=== PATIENT | female | born 1940 | race Caucasian/White ===

== ENCOUNTER 2024-05-15 15:03 | Inpatient (IN) | payer MEDICARE ==
[~2024-05-15] VITALS: Ht 162.6 cm; Wt 72.6 kg
[2024-05-15 19:30] VITALS: BP 138/72; TEMP 98.2; O2SAT 97
[2024-05-15] MEDS ORDERED: MAGNESIUM HYDROXIDE 30 ML UDC PO PRN (20:00)
[2024-05-15] MEDS ORDERED: MAG HYDROX/AL HYDROX/SIMETH 30 ML UDC PO PRN (20:00)
[2024-05-15] MEDS: BLOOD SUGAR DIAGNOSTIC 1 EACH STRIP IN ONE (20:25)
[2024-05-15] MEDS ORDERED: LEVO500T90 PO (20:41)
[2024-05-15] MEDS ORDERED: ALPR1TAB2 PO (20:41)
[2024-05-15] MEDS ORDERED: ESTRADIOL (20:41)
[2024-05-15 21:42] VITALS: BP 138/72; TEMP 98.2; O2SAT 97
[2024-05-16 02:37] LABS: APPEARANCE,URINE CLOUDY (CLEAR); BILIRUBIN,URINE NEGATIVE (NEGATIVE); BLOOD, URINE TRACE-INTA Ery/uL (NEGATIVE); COLOR,URINE YELLOW (YELLOW); KETONES,URINE NEGATIVE (NEGATIVE); LEUKOCYTE ESTERASE ,URINE 2+ (NEGATIVE); NITRITE, URINE POSITIVE (NEGATIVE); PROTEIN,URINE NEGATIVE (NEGATIVE); UGLUCOSE NEGATIVE (NEGATIVE); UROBILINOGEN,URINE 0.2 EU/dL (0.2)
[2024-05-16 02:45] LABS: ADD URINE CULTURE YES; BACTERIA,URINE Moderate /HPF (None Seen); RBC,URINE 0-2 /HPF (0-2); SQUAMOUS EPITHELIAL CELL,UR Rare /HPF (None Seen)
[2024-05-16 07:08] LABS: ALANINE AMINOTRANSFERASE 15 U/L (12-78); ALKALINE PHOSPHATASE 102 U/L (46-116); ASPARTATE AMINOTRANSFERASE 15 U/L (15-37); BILIRUBIN,TOTAL 0.5 mg/dL (0.2-1.0); CALCIUM, SERUM 8.2 mg/dL (8.5-10.1); CARBON DIOXIDE 28 mmol/L (21-32); CHLORIDE 109 mmol/L (98-107); CREATININE 0.7 mg/dL (0.6-1.3); GLUCOSE 98 mg/dL (74-106); POTASSIUM 4.2 mmol/L (3.5-5.1); SODIUM SERUM 144 mmol/L (136-145); TOTAL PROTEIN, SERUM 6.7 g/dL (6.4-8.2); UREA NITROGEN, BLOOD 15 mg/dL (7-18)
[2024-05-16 07:09] LABS: CHOLESTEROL 175 mg/dL (<200); HDL CHOLESTEROL 72 mg/dL (40-60); LDL 83 mg/dL (0-99); TRIGLYCERIDES 65 mg/dL (30-150)
[2024-05-16 08:00] VITALS: BP 159/64; TEMP 97.8; O2SAT 98
[2024-05-16] MEDS: LORAZEPAM 0.5 MG TABLET PO PRN (09:55)
[2024-05-16] MEDS: DIVALPROEX SODIUM 125 MG CAP.SPRINK PO SCH (12:26)
[2024-05-16] MEDS: OLANZAPINE 10 MG VIAL IM STA (15:45)
[2024-05-16 16:00] VITALS: BP 114/96; TEMP 97.8; O2SAT 96
[2024-05-16] MEDS: ACETAMINOPHEN 325 MG TABLET PO PRN (16:37)
[2024-05-16 20:41] VITALS: BP 137/98; TEMP 97.9; O2SAT 97
[2024-05-16] MEDS: TEMAZEPAM 7.5 MG CAPSULE PO PRN (21:13)
[2024-05-17 08:00] VITALS: BP 160/71; TEMP 98.7; O2SAT 97
[2024-05-17] MEDS: LORAZEPAM 0.5 MG TABLET PO ONE (10:51)
[2024-05-17] MEDS: DIVALPROEX SODIUM 125 MG CAP.SPRINK PO SCH (13:02)
[2024-05-17 16:00] VITALS: BP 142/73; TEMP 98.6; O2SAT 100
[2024-05-17 16:52] LABS: THYROID STIMULATING HORMONE 1.59 uIU/mL (0.358-3.74)
[2024-05-17 20:00] VITALS: BP 117/53; TEMP 98.1; O2SAT 96
[2024-05-17] MEDS: OLANZAPINE 2.5 MG TABLET PO SCH (21:26)
[2024-05-18 08:00] VITALS: BP 153/80; TEMP 97.6; O2SAT 96
[2024-05-18 08:08] LABS: FOLIC ACID 10.3 ng/mL (>3.0)
[2024-05-18] MEDS: CYANOCOBALAMIN 500 MCG TABLET PO SCH (09:40)
[2024-05-18 16:00] VITALS: BP 127/67; TEMP 97.9; O2SAT 96
[2024-05-18 20:00] VITALS: BP 132/64; TEMP 98.1; O2SAT 98
[2024-05-19 09:04] VITALS: BP 113/68; TEMP 97.9; O2SAT 95
[2024-05-19 16:07] VITALS: BP 170/76; TEMP 97.6; O2SAT 98
[2024-05-19 20:00] VITALS: BP 145/69; TEMP 98.2; O2SAT 98
[2024-05-19] MEDS: NITROFURANTOIN/MONOHYDRATE MACROCRYSTALS 100 MG CAPSULE PO SCH (23:03)
[2024-05-20 08:00] VITALS: BP 139/67; TEMP 97.6; O2SAT 98
[2024-05-20 16:00] VITALS: BP 118/62; TEMP 98; O2SAT 98
[2024-05-20 20:36] VITALS: BP 143/71; TEMP 98.2; O2SAT 97
[2024-05-21 16:30] VITALS: BP 117/51; TEMP 98.1; O2SAT 96
[2024-05-21 21:11] VITALS: BP 157/85; TEMP 98.1; O2SAT 99
[2024-05-22 08:00] VITALS: BP 155/66; TEMP 97.9; O2SAT 99
[2024-05-22] MEDS: OLANZAPINE 2.5 MG TABLET PO PRN (08:03)
[2024-05-22 16:00] VITALS: BP 127/63; TEMP 97.7; O2SAT 98
[2024-05-22 20:37] VITALS: BP 156/62; TEMP 97.7; O2SAT 99
[2024-05-23 07:30] LABS: BASOPHILS % (AUTO) 0.5 % (0.0-2.0); EOSINOPHILS # (AUTO) 0.2 K/uL (0.0-0.7); EOSINOPHILS % (AUTO) 3.4 % (0.0-6.0); HEMATOCRIT 34 % (33-45); HEMOGLOBIN 11.2 g/dL (11.5-14.8); LYMPHOCYTES # (AUTO) 1.1 K/uL (0.8-4.8); LYMPHOCYTES % (AUTO) 18.8 % (20.0-44.0); MEAN CORPUSCULAR HEMOGLOBIN 33 PG (26.0-33.0); MEAN CORPUSCULAR HGB CONC 33 g/dl (31.0-36.0); MEAN CORPUSCULAR VOLUME 100 fL (82-100); MONOCYTES # (AUTO) 0.6 K/uL (0.1-1.30); MONOCYTES % (AUTO) 10.9 % (2.0-12.0); NEUTROPHILS # (AUTO) 3.9 K/uL (1.8-8.9); NEUTROPHILS % (AUTO) 66.4 % (43.0-81.0); PLATELET COUNT (AUTO) 189 K/uL (150-450); RED BLOOD CELL COUNT(AUTO) 3.38 MIL/uL (4.0-5.2); RED CELL DISTRIBUTION WIDTH 13.8 % (11.5-15.0); WHITE BLOOD COUNT (AUTO) 5.8 K/uL (4.3-11.0)
[2024-05-23 07:48] LABS: ALANINE AMINOTRANSFERASE 16 U/L (12-78); ALBUMIN 2.6 g/dL (3.4-5.0); ALKALINE PHOSPHATASE 82 U/L (46-116); ASPARTATE AMINOTRANSFERASE 12 U/L (15-37); BILIRUBIN,TOTAL 0.4 mg/dL (0.2-1.0); CALCIUM, SERUM 8.1 mg/dL (8.5-10.1); CARBON DIOXIDE 28 mmol/L (21-32); CHLORIDE 109 mmol/L (98-107); CREATININE 0.6 mg/dL (0.6-1.3); GLUCOSE 85 mg/dL (74-106); SODIUM SERUM 144 mmol/L (136-145); TOTAL PROTEIN, SERUM 5.9 g/dL (6.4-8.2); UREA NITROGEN, BLOOD 21 mg/dL (7-18)
[2024-05-23 08:00] VITALS: BP 159/80; TEMP 97.9; O2SAT 99
[2024-05-23 08:34] LABS: VALPROIC ACID 61 ug/mL (50-100)
[2024-05-23 16:00] VITALS: BP 140/73; TEMP 98.1; O2SAT 99
[2024-05-23 20:31] VITALS: BP 143/77; TEMP 98.4; O2SAT 98
[2024-05-24 08:00] VITALS: BP 152/81; TEMP 98.1; O2SAT 97
[2024-05-24] MEDS ORDERED: Z GUARD REMEDY 4 OZ OINT TP PRN (08:00)
[2024-05-24] MEDS: Z GUARD REMEDY 4 OZ OINT TP SCH (09:02)
[2024-05-24] MEDS: CLOTRIMAZOLE 1% 15 GM TUBE TP SCH (09:02)
[2024-05-24 16:00] VITALS: BP 122/61; TEMP 97.7; O2SAT 98
[2024-05-24 20:00] VITALS: BP 136/67; TEMP 97.9; O2SAT 97
[2024-05-25 08:00] VITALS: BP 129/60; TEMP 97.5; O2SAT 98
[2024-05-25 12:36] LABS: CALCIUM, SERUM 8.5 mg/dL (8.5-10.1); CARBON DIOXIDE 25 mmol/L (21-32); CHLORIDE 105 mmol/L (98-107); CREATININE 0.6 mg/dL (0.6-1.3); GLUCOSE 89 mg/dL (74-106); POTASSIUM 4.1 mmol/L (3.5-5.1); SODIUM SERUM 141 mmol/L (136-145); UREA NITROGEN, BLOOD 25 mg/dL (7-18)
[2024-05-25 13:12] LABS: BASOPHILS % (AUTO) 0.3 % (0.0-2.0); EOSINOPHILS # (AUTO) 0.2 K/uL (0.0-0.7); EOSINOPHILS % (AUTO) 2.4 % (0.0-6.0); HEMATOCRIT 36 % (33-45); HEMOGLOBIN 12.1 g/dL (11.5-14.8); LYMPHOCYTES # (AUTO) 1.1 K/uL (0.8-4.8); LYMPHOCYTES % (AUTO) 12.8 % (20.0-44.0); MEAN CORPUSCULAR HEMOGLOBIN 33 PG (26.0-33.0); MEAN CORPUSCULAR HGB CONC 34 g/dl (31.0-36.0); MEAN CORPUSCULAR VOLUME 99 fL (82-100); MONOCYTES # (AUTO) 0.7 K/uL (0.1-1.30); MONOCYTES % (AUTO) 8.7 % (2.0-12.0); NEUTROPHILS # (AUTO) 6.4 K/uL (1.8-8.9); NEUTROPHILS % (AUTO) 75.8 % (43.0-81.0); PLATELET COUNT (AUTO) 196 K/uL (150-450); RED BLOOD CELL COUNT(AUTO) 3.62 MIL/uL (4.0-5.2); RED CELL DISTRIBUTION WIDTH 13.7 % (11.5-15.0); WHITE BLOOD COUNT (AUTO) 8.4 K/uL (4.3-11.0)
[2024-05-25] MEDS: GUAIFENESIN 300 MG/15 ML UDC PO PRN (14:27)
[2024-05-25 16:00] VITALS: BP 133/75; TEMP 97.7; O2SAT 99
[2024-05-25 20:00] VITALS: BP 146/75; TEMP 97.9; O2SAT 98
[2024-05-26 08:00] VITALS: BP 144/69; TEMP 98; O2SAT 97
[2024-05-26] MEDS: AZITHROMYCIN 250 MG TABLET PO ONE (12:55)
[2024-05-26] MEDS: IBUPROFEN 600 MG TABLET PO ONE (12:55)
== END 2024-05-26 14:05 | DRG 885 ==
LOC: GPS 19:19
PROVIDERS: ADMIT Psychiatry & Neurology Psychosomatic Medicine; ATTEND Nurse Practitioner Family
DX: F39 Unspecified mood [affective] disorder (principal); N39.0 Urinary tract infection, site not specified; F03.93 Unspecified dementia, unspecified severity, with mood disturbance; F03.92 Unspecified dementia, unspecified severity, with psychotic disturbance; F03.94 Unspecified dementia, unspecified severity, with anxiety; F23 Brief psychotic disorder; Z79.899 Other long term (current) drug therapy; F32.A Depression, unspecified; Z20.822 Contact with and (suspected) exposure to COVID-19; F41.9 Anxiety disorder, unspecified; Z73.6 Limitation of activities due to disability; M62.81 Muscle weakness (generalized); F19.90 Other psychoactive substance use, unspecified, uncomplicated; B96.1 Klebsiella pneumoniae [K. pneumoniae] as the cause of diseases classified elsewhere
CPT/HCPCS: 36415; 71045-TC; 80048-TC; 80053-TC; 80061-TC; 80164-TC; 81001; 82607-TC; 82962-TC; 83921; 84443-TC; 85025-TC; 87086-TC; 97110-TC; 97116-TC; 97530-TC; J3490